=== PATIENT | male | born 1960 | race Caucasian/White ===

== ENCOUNTER 2025-03-29 15:45 | Outpatient (RCR) | payer MEDICARE, SELFPAY ==
--- NOTE | 2025-02-21 16:59 | PTOPEVAL1 ---
Assessment and note entered by Ofelia Rivera, PT Evaluation Information Assessment Status Evaluation Diagnosis Displaced fx right hip, R hip pain ICD-10 Condition Codes (PT) Pain in right hip M25.551,Abnormalities of gait and mobility R26.9,Weakness R53.1 Other ICD-10 Condition Codes ( Stiffness right hip joint PT) Onset 11/2024 Subjective Information Fell on ice in September, didn't have any issues. [place] in November has to watch cellar floor for water , anika did the splits and since this point has been irritated. Woke up one morning and had pain and couldn't put weight on RLE. States went to ER and they did x- rays and found nothing. Went home and about 10 days later went to ER again, and had more x-rays and then CT scans. They thought there was an abscess in the right hip, told pt had to have surgery. Had to go to [facility], and had to go to ambulance or would have to admit via ER. Was going to be 15oo dollars to pay for EMS. Was able to drive himself after communication between hospitals. Registration in [place] got him into a room. Got an MRI the next morning. No longer abscess, but a fracture on the outer bone. Was referred to ortho and came home. Was told to stay off leg and not work. States has groin pain that appears to be worsening Had an appt with PCP, hip specialist too full for [place], but went to specialist in [place] and was there about a week ago. Took more x-rays, was told again no fracture but that needs a new hip. 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 Was told to still stay off it. Scheduled for a shot in his hip 02/26/2025. Staying off hip is better, but is an active person . Reports hasn't been doing much due to these instructions. Has 13 steps to upstairs of home to get to bed, is learning to lead with left foot. Reported Pain Level Pain Score 3: Self Report Assessment PT Clinical Summary Pt presents s/p displaced right hip fracture diagnosis, with conflicting reports of fracture versus arthritis of the right hip joint. Scheduled for steroid shot in joint 02/26/2025. Evaluation shows greatly reduced ROM andres hip joints R>L, decreased strength, and abnormal gait. Pt reports is not being active due to pain in the hip. Pt was educated in crutch use to improve mobility with less pain to allow more functional use. Pt will benefit from Plan of Care Interventions Electrical Stimulation,Gait Training,Hot Pack/Cold Pack,Manual Therapy,Neuro Re-education, Therapeutic Activities,Therapeutic Exercise,Self- Care/Home Management PT Services Indicated Yes Treatment Frequency and 2x weekly x 6 weeks Duration These treatments will address the objective and functional deficits as defined above. The patient will be advanced safely and appropriately in order for the patient to progress towards his/her prior level of function. Additional exercises will be introduced and as well as a comprehensive home exercise program upon discharge, if needed, ?to ensure carryover of functional gains achieved in the clinic. This treatment plan has been reviewed and agreement upon by the patient.
--- NOTE | 2025-02-21 16:59 | OPREHPOC ---
Outpatient Therapy Plan of Care This is a Multidisciplinary Plan of Care that may contain components documented by all disciplines (PT, OT, and ST.) PT Problem 1 PT Problem #1 Knowledge Deficit PT Goal 1 Goal / Goal Update Pt will be independent in HEP Pt will verbalize understanding of diagnosis and prognosis Target Visit 6 PT Problem 2 PT Problem #2 Pain PT Goal 1 Goal / Goal Update Pt will report lowest pain rating at 0/10 to show improvement in overall discomfort Target Visit 10 PT Goal 2 Goal / Goal Update Pt will report greatest pain level at 3/10 or less to improve ADLs and activities Target Visit 20 PT Problem 3 PT Problem #3 Impaired Range of Motion PT Goal 1 Goal / Goal Update Pt will demonstrate passive hip extension to neutral without pain Target Visit 10 PT Goal 2 Goal / Goal Update Pt will demonstrate active hip extension 5 degrees to show improved joint motion PT Problem 4 PT Problem #4 Impaired Strength PT Goal 1 Goal / Goal Update Pt will demonstrate 3+/5 in all tested planes for improved joint support PT Goal 2 Goal / Goal Update Pt will demonstrate 4/5 in all tested planes for improved joint support and functional mobility
--- NOTE | 2025-03-29 16:46 | PTOPDC ---
Assessment and note entered by Ofelia Rivera, PT Evaluation Information Assessment Status Discharge Diagnosis Displaced fx right hip, R hip pain ICD-10 Condition Codes (PT) Pain in right hip M25.551,Abnormalities of gait and mobility R26.9,Weakness R53.1 Other ICD-10 Condition Codes ( Stiffness right hip joint PT) Onset 11/2024 Subjective Information Pt reports is going to get a new hip on Jul 17. States pain is worse than it was prior to steroid shot. States will be having assist right after surgery Reports Voltaren gel really helps, and Tylenol arthritis. States with these can do much better. Is working much less than previously. Reported Pain Level Pain Score 3: Self Report Additional Pain Score Comments Occasional increase with heavy load into leg Assessment PT Clinical Summary Pt has attended therapy consistently for right hip pain. Received a steroid shot which did not last more than a week. Returned to Ortho and is scheduled for total hip replacement. Educated patient on current plan with maintaining existing ROM, strength, and function while minimizing pain while awaiting surgery. Updated HEP and answered all questions. Thus patient is being discharged for max benefit being met and will continue therapy post-surgery Plan of Care PT Services Indicated No
== END 2025-04-02 08:35 | disposition home or self-care (01) ==
LOC: ANHHIPT 15:45
PROVIDERS: PCP Nurse Practitioner Family
DX: M25.551 Pain in right hip (principal); S72.111A Displaced fracture of greater trochanter of right femur, initial encounter for closed fracture
CPT/HCPCS: 97014; 97110; 97116; 97140; 97161; 97530; 97750; G0283